=== PATIENT | female | born 1995 | race Asian ===

== ENCOUNTER 2019-04-14 00:58 | Emergency (ER) | payer OTHER ==
[~2019-04-14] VITALS: Ht 152.4 cm; Wt 62.7 kg
[2019-04-14 01:29] VITALS: BP 121/72
[2019-04-14] MEDS ORDERED: FLUORESCEIN SODIUM 1 MG STRIP OS ONE (01:45)
[2019-04-14] MEDS ORDERED: PROPARACAINE HCL 0.5% 15 ML OPHTHALMIC SOLUTION OS ONE (01:45)
[2019-04-14] MEDS ORDERED: ACETAMINOPHEN 500 MG TABLET PO ONE (01:45)
[2019-04-14] MEDS ORDERED: ERYTHROMYCIN 0.5% 3.5 GM TUBE OPHTHALMIC OINTMENT OS ONE (02:15)
== END 2019-04-14 02:24 | disposition home or self-care (01) ==
LOC: EMS 01:02
DX: S00.12XA Contusion of left eyelid and periocular area, initial encounter (principal); X58.XXXA Exposure to other specified factors, initial encounter; Y93.89 Activity, other specified; Y92.89 Other specified places as the place of occurrence of the external cause; Y99.8 Other external cause status